=== PATIENT | female | born 1945 | race African-American/Black ===

== ENCOUNTER 2018-07-20 06:13 | Day surgery (SDC) | payer OTHER ==
[2018-07-15 12:17] LABS: Absolute Lymphocytes (CBC) 1.4 K/uL (0.7-4.9); Absolute Monocytes 0.5 K/uL (0.1-1.3); Absolute Neutrophil 2.8 K/uL (1.8-8.0); Basophils % 0.9 % (0-1.3); Eosinophils % 4.8 % (0-4.4); Hematocrit 38.5 % (36.0-45.0); Lymphocytes % 28.6 % (15.3-44.8); MCH 27.2 pg (27.0-35.0); MCV 82.1 fL (80-100); MPV 8.3 fL (7.6-11.3); Monocytes % 9.7 % (3.3-12.3); RBC Red Blood Cell Count 4.69 M/uL (3.86-4.86)
[2018-07-15 12:26] LABS: Protime INR 1.03
[2018-07-15 12:32] LABS: Potassium 3.7 mmol/L (3.5-5.1)
--- NOTE | 2018-07-15 12:33 | RAD REPORT ---
EXAM DESCRIPTION: Sebastian Urban And Lat (2 Views)07/15/2018 12:26 pm CLINICAL HISTORY: Preop for heart catheterization. Hypertension COMPARISON: July 02, 2018 FINDINGS: Marked scoliosis involves the thoracolumbar spine. The lungs appear clear of acute infiltrate. The heart is normal size IMPRESSION: No acute abnormalities displayed
[2018-07-20] MEDS ORDERED: LIDOCAINE 1% MPF 30 ML VIAL ONE (06:58)
[2018-07-20] MEDS ORDERED: NA CHLORIDE 0.9% 0 ML ONE (06:58)
[2018-07-20] MEDS ORDERED: ATROPINE SULF 1 MG/10 ML SYR IV ONE (06:58)
[2018-07-20] MEDS ORDERED: HEPA 1000U/500MLS 1,000 UNIT/500 ML BAG IV ONE (06:58)
[2018-07-20] MEDS ORDERED: NA CHLORIDE 0.9% 500 ML ONE (07:02)
[2018-07-20] MEDS ORDERED: FENTANYL CITR 100 MCG/2 ML ONE (07:21)
[2018-07-20] MEDS ORDERED: MIDAZOLAM HCL 2 MG/2 ML INJ ONE ×2 (07:21→07:35)
[2018-07-20] MEDS ORDERED: METHYLPREDNISOLONE 125 MG INJ ONE (07:27)
--- NOTE | 2018-07-20 11:23 | OP ---
Surgeon: Gurjit Thomas MD Mail Courier: Minerva Verdin. Ms. Arce was admitted to the label machine operator as an outpatient on 07/20/2018. Procedure: Left heart catheterization, selective coronary arteriogram. A 6-Persian sheath introduced in the right common femoral artery. The patient was prepped and draped in the routine sterile fashi on, given 100 mg of Solu-Medrol for iodine allergy. She has received 60 mg of prednisone p.o. x2. S he was prepped and draped in the routine sterile fashion. 6-Persian catheters were used to do the gian gnostic catheterization. She was found to have about 20-30 percent mid LAD lesion. Otherwise, she h ad a normal circumflex, normal RCA. She was right dominant. She tolerated the procedure well. Ther e were no complications. Blood Loss: 5 cc. Postoperative Diagnosis: Mild coronary artery disease. Plan: Medical therapy. Total Conscious Sedation: 30 minutes. JACQUES/DELROY Voice ID: [id number] Report ID: [id number]
== END 2018-07-20 10:07 | disposition home or self-care (01) ==
LOC: CCL 06:13
DX: I25.10 Atherosclerotic heart disease of native coronary artery without angina pectoris (principal); I10 Essential (primary) hypertension; Z88.2 Allergy status to sulfonamides; Z91.041 Radiographic dye allergy status; Z82.49 Family history of ischemic heart disease and other diseases of the circulatory system
CPT/HCPCS: 36415; 71046; 80048; 85025; 85610; 85730; 93454; C1760; C1893; J2250; J2930; J3010; J0583

== ENCOUNTER 2018-10-19 16:45 | Observation (INO) | payer OTHER ==
--- OUTSIDE RECORDS SUMMARY | 2018-10-19 16:47 | XMS REPORT ---
:1945 [facility] [address] [place] [address] Dr. Chapman. [address] [place] [id number] Care Team Providers Name Role Phone Unavailable Unavailable Unavailable Problems This patient has no known problems. Allergies, Adverse Reactions, Alerts This patient has no known allergies or adverse reactions. Medications This patient has no known medications.
--- NOTE | 2018-10-19 20:03 | RAD REPORT ---
EXAM DESCRIPTION: RAD - Chest Single View - 10/19/2018 7:39 pm CLINICAL HISTORY: Chest pain COMPARISON: July 2018 TECHNIQUE: AP portable chest image was obtained 1936 hours . FINDINGS: No acute lung parenchymal process seen. Interstitial markings are stable from comparison. Heart and vasculature are normal. No measurable pleural effusion and no pneumothorax. No acute bone f inding. Patient has a very pronounced right convex thoracic scoliotic curvature. No acute aortic find ings suspected. IMPRESSION: No acute cardiopulmonary process. No significant interval change.
[2018-10-19 20:16] LABS: Absolute Monocytes 0.6 K/uL (0.1-1.3); Absolute Neutrophil 4.2 K/uL (1.8-8.0); Basophils % 0.9 % (0-1.3); Eosinophils % 2.2 % (0-4.4); Hematocrit 41.6 % (36.0-45.0); Lymphocytes % 28.9 % (15.3-44.8); MPV 8.7 fL (7.6-11.3); Monocytes % 8.2 % (3.3-12.3); RBC Red Blood Cell Count 5.07 M/uL (3.86-4.86)
[2018-10-19 20:38] LABS: ALT/SGPT 13 U/L (12-78); AST/SGOT 18 U/L (15-37); Albumin 4.2 g/dL (3.4-5.0); Alkaline Phosphatase 111 U/L (45-117); BUN Blood Urea Nitrogen 10 mg/dL (7-18); Bicarbonate 26 mmol/L (21-32); Bilirubin Direct < 0.1 mg/dL (0-0.2); Bilirubin Total 0.2 mg/dL (0.2-1.0); Glucose Level 110 mg/dL (74-106); Magnesium 2.6 mg/dL (1.8-2.4); NT PRO-BNP 52 pg/mL (<450); Potassium 4.2 mmol/L (3.5-5.1); Protein, Total 8.9 g/dL (6.4-8.2); Sodium Level 138 mmol/L (136-145); Troponin (Emerg Dept Use Only) < 0.02 ng/mL (0.0-0.045)
[2018-10-19] MEDS ORDERED: NA CHLORIDE 0.9% 1,000 ML ONE (20:48)
[2018-10-19 21:21] LABS: Urine Blood TRACE (NEG); Urine Glucose NEGATIVE (NEG); Urine Protein NEGATIVE (NEG); Urine Specific Gravity 1.015 (1.005-1.030); Urine pH 6.5 (5.0-7.0)
--- NOTE | 2018-10-19 21:43 | EKG ---
Test Date: 2018-10-19 Test Time: 17:03:11 Operations Processor: ALYCIA MEASUREMENT RESULTS: Intervals: Rate: 75 [place]: 222 QRSD: 82 QT: 374 QTc: 417 [place]: P: 70 [place]: 222 QRS: 71 T: 10 INTERPRETIVE STATEMENTS: Sinus rhythm with 1st degree AV block Biatrial enlargement Abnormal ECG Compared to ECG 07/02/2018 10:13:25 No significant changes Electronically Signed On 10-19-18 21:43:33 MANAGER ACQUISITION by Haile Soriano
--- NOTE | 2018-10-19 23:43 | ER ---
Nurse's Notes [facility] Name: Grace Arce Age: 73 yrs Sex: Female : 1945 Arrival Date: 10/19/2018 Time: 16:48 Bed 24 Private MD: Kumar Louie R Diagnosis: Other chest pain;Abdominal tenderness;Urinary tract infection, site not specified;Essential (primary) hypertension Presentation: 10/19 16:56 Presenting complaint: Patient states: Upper abdominal fullness and upper chest hb tightness x 3 days. Transition of care: patient was not received from another setting of care. Onset of symptoms was October 17, 2018. Risk Assessment: Do you want to hurt yourself or someone else? Patient reports no desire to harm self or others. Care prior to arrival: None. 16:56 Method Of Arrival: Ambulatory hb 16:56 Acuity: WALE 3 hb 22:18 Initial Sepsis Screen: Does the patient meet any 2 criteria? No. Patient's initial mg2 sepsis screen is negative. Does the patient have a suspected source of infection? No. Patient's initial sepsis screen is negative. Historical: - Allergies: 17:00 Iodinated Contrast- Oral and IV Dye; hb 17:00 Sulfa (Sulfonamide Antibiotics); hb - Home Meds: 17:01 Norvasc Oral [Active]; Atenolol Oral [Active]; hb - PMHx: 17:01 Hypertension; hb - Immunization history:: Adult Immunizations up to date. - Social history:: Smoking status: Patient/guardian denies using tobacco. - Ebola Screening: : No symptoms or risks identified at this time. - Family history:: not pertinent. Screenin:47 Abuse screen: Denies threats or abuse. Denies injuries from another. Nutritional mg2 screening: No deficits noted. Tuberculosis screening: No symptoms or risk factors identified. Fall Risk IV access (20 points). Assessment: 19:45 General: Appears in no apparent distress. comfortable, Behavior is calm, cooperative. mg2 Pain: Complains of pain in chest Pain does not radiate. Pain currently is 2 out of 10 on a pain scale. Quality of pain is described as tightness Pain began gradually, 2-3 days ago. Is intermittent. Neuro: Level of Consciousness is awake, alert, obeys commands, Oriented to person, place, time, situation. Cardiovascular: Capillary refill < 3 seconds Patient's skin is warm and dry. Respiratory: Airway is patent Respiratory effort is even, unlabored, Respiratory pattern is regular, symmetrical. GI: Bowel sounds present X 4 quads. Abd is soft and non tender X 4 quads. Reports constipation. : No signs and/or symptoms were reported regarding the genitourinary system. EENT: No signs and/or symptoms were reported regarding the EENT system. Derm: Skin is intact, is healthy with good turgor, Skin is pink, warm \T\ dry. normal. Musculoskeletal: Circulation, motion, and sensation intact. Capillary refill < 3 seconds. 23:59 Reassessment: patient informed about the need for admission. patient agreed. mg2 Vital Signs: 16:59 BP 147 / 100; Pulse 79; Resp 16; Temp 98.1; Pulse Ox 100% on R/A; Pain 8/10; hb 19:48 BP 139 / 96; Pulse 77; Resp 18; Pulse Ox 99% on R/A; Pain 2/10; mg2 22:55 BP 124 / 84; Pulse 80; Resp 18; Pulse Ox 100% on R/A; Pain 0/10; mg2 23:41 Weight 68.49 kg; ms 23:59 BP 140 / 102; Pulse 80; Resp 18; Pulse Ox 100% on R/A; Pain 0/10; mg2 ED Course: 16:48 Patient arrived in ED. sb2 16:49 Kumar Louie MD is Private Physician. sb2 16:59 Triage completed. hb 17:01 Arm band placed on. hb 17:02 EKG completed in triage. Results shown to MD. hb 19:16 Bruce Rudolph, ANGELES is Primary Nurse. mg2 19:27 Edmond Olivas MD is Attending Physician. kermit 19:39 XRAY Chest (1 view) In Process Unspecified. EDMS 19:47 No provider procedures requiring assistance completed. Inserted saline lock: 20 gauge mg2 in right antecubital area, using aseptic technique. Blood collected. 22:19 Patient has correct armband on for positive identification. mg2 22:45 CT Chest Abdomen Pelvis W/O Contrast: oral only In Process Unspecified. EDMS 23:40 Kumar Louie MD is Hospitalizing Provider. kermit 10/20 01:18 Patient admitted, IV remains in place. mg2 Administered Medications: 10/19 20:58 Drug: NS 0.9% 500 ml Route: IV; Rate: bolus; Site: right antecubital; mg2 10/20 01:22 Follow up: Response: No adverse reaction; IV Status: Completed infusion mg2 10/19 21:24 Drug: NS 0.9% 1000 ml Route: IV; Rate: 125 ml/hr; Site: right antecubital; mg2 10/20 01:22 Follow up: Response: No adverse reaction; IV Status: Completed infusion mg2 10/19 23:58 Drug: Aspirin Chewable Tablet 162 mg Route: PO; mg2 10/20 01:22 Follow up: Response: No adverse reaction mg2 10/19 23:58 Drug: Pepcid 20 mg Route: IVP; Site: right antecubital; mg2 10/20 01:19 Follow up: Response: No adverse reaction; Marked relief of symptoms mg2 10/19 23:58 Drug: Lopressor 25 mg Route: PO; mg2 10/20 01:19 Follow up: Response: No adverse reaction [facility] 10/19 23:58 Drug: Lovenox 1 mg/kg Route: Sub-Q; Site: right lower abdomen; mg2 10/20 01:19 Follow up: Response: No adverse reaction; Marked relief of symptoms mg2 10/19 23:58 Drug: Rocephin - (cefTRIAXone) 1 grams Route: IVPB; Infused Over: 30 mins; Site: right mg2 antecubital; 10/20 01:19 Follow up: Response: No adverse reaction; IV Status: Completed infusion mg2 Outcome: 10/19 23:42 Decision to Hospitalize by Provider. [facility] 10/20 01:18 Admitted to Tele accompanied by tech, via wheelchair, room 403, with chart, Report mg2 called to ANGELES Gutierrez Condition: stable Instructed on the need for admit, Demonstrated understanding of instructions. 02:03 Patient left the ED. mg2 Signatures: Dispatcher [employer] EDEdmond Rosenthal MD MD cha Solis, Maria ms Baxter, Heather, ANGELES RN Sharon Del Castillo Michele, RN RN mg2 Corrections: (The following items were deleted from the chart) 10/19 17:02 17:01 EKG completed in triage. Results shown to . deb boyd
--- NOTE | 2018-10-19 23:44 | EDPHYS ---
Physician Documentation [facility] Name: Grace Arce Age: 73 yrs Sex: Female : 1945 Arrival Date: 10/19/2018 Time: 16:48 Bed 24 Private MD: Kumar Louie R ED Physician Edmond Olivas HPI: 10/19 20:34 This 73 yrs old Black Female presents to ER via Ambulatory with complaints of Abdominal kermit Pain, Chest Pain > 30 y/o. 20:34 The patient or guardian reports chest pain that is located primarily in the substernal kermit area. Onset: 7 day(s) ago. The pain does not radiate. Associated signs and symptoms: The patient has no apparent associated signs or symptoms. The chest pain is described as dull, a pressure. Modifying factors: The symptoms are alleviated by nothing. the symptoms are aggravated by nothing. Severity of pain: At its worst the pain was mild in the emergency department the pain is unchanged. The patient has not experienced similar symptoms in the past. Historical: - Allergies: 17:00 Iodinated Contrast- Oral and IV Dye; hb 17:00 Sulfa (Sulfonamide Antibiotics); hb - Home Meds: 17:01 Norvasc Oral [Active]; Atenolol Oral [Active]; hb - PMHx: 17:01 Hypertension; hb - Immunization history:: Adult Immunizations up to date. - Social history:: Smoking status: Patient/guardian denies using tobacco. - Ebola Screening: : No symptoms or risks identified at this time. - Family history:: not pertinent. ROS: 20:34 Constitutional: Negative for fever, chills, and weight loss, Eyes: Negative for injury, kermit pain, redness, and discharge, ENT: Negative for injury, pain, and discharge, Neck: Negative for injury, pain, and swelling, Respiratory: Negative for shortness of breath, cough, wheezing, and pleuritic chest pain, Abdomen/GI: Negative for abdominal pain, nausea, vomiting, diarrhea, and constipation, Back: Negative for injury and pain, : Negative for injury, bleeding, discharge, and swelling, MS/Extremity: Negative for injury and deformity, Skin: Negative for injury, rash, and discoloration, Neuro: Negative for headache, weakness, numbness, tingling, and seizure, Psych: Negative for depression, anxiety, suicide ideation, homicidal ideation, and hallucinations, Allergy/Immunology: Negative for hives, rash, and allergies, Endocrine: Negative for neck swelling, polydipsia, polyuria, polyphagia, and marked weight changes, Hematologic/Lymphatic: Negative for swollen nodes, abnormal bleeding, and unusual bruising. 20:34 Cardiovascular: Positive for chest pain, of the chest. 20:34 Abdomen/GI: Positive for abdominal pain, of the right upper quadrant, left upper quadrant, right lower quadrant and left lower quadrant. Exam: 20:34 Constitutional: This is a well developed, well nourished patient who is awake, alert, kermit and in no acute distress. Head/Face: Normocephalic, atraumatic. Eyes: Pupils equal round and reactive to light, extra-ocular motions intact. Lids and lashes normal. Conjunctiva and sclera are non-icteric and not injected. Cornea within normal limits. Periorbital areas with no swelling, redness, or edema. ENT: Nares patent. No nasal discharge, no septal abnormalities noted. Tympanic membranes are normal and external auditory canals are clear. Oropharynx with no redness, swelling, or masses, exudates, or evidence of obstruction, uvula midline. Mucous membranes moist. Neck: Trachea midline, no thyromegaly or masses palpated, and no cervical lymphadenopathy. Supple, full range of motion without nuchal rigidity, or vertebral point tenderness. No Meningismus. Chest/axilla: Normal chest wall appearance and motion. Nontender with no deformity. No lesions are appreciated. Cardiovascular: Regular rate and rhythm with a normal S1 and S2. No gallops, murmurs, or rubs. Normal PMI, no JVD. No pulse deficits. Respiratory: Lungs have equal breath sounds bilaterally, clear to auscultation and percussion. No rales, rhonchi or wheezes noted. No increased work of breathing, no retractions or nasal flaring. Abdomen/GI: Soft, non-tender, with normal bowel sounds. No distension or tympany. No guarding or rebound. No evidence of tenderness throughout. Back: No spinal tenderness. No costovertebral tenderness. Full range of motion. Female : Normal external genitalia. Skin: Warm, dry with normal turgor. Normal color with no rashes, no lesions, and no evidence of cellulitis. MS/ Extremity: Pulses equal, no cyanosis. Neurovascular intact. Full, normal range of motion. Neuro: Awake and alert, GCS 15, oriented to person, place, time, and situation. Cranial nerves II-XII grossly intact. Motor strength 5/5 in all extremities. Sensory grossly intact. Cerebellar exam normal. Normal gait. Psych: Awake, alert, with orientation to person, place and time. Behavior, mood, and affect are within normal limits. Vital Signs: 16:59 BP 147 / 100; Pulse 79; Resp 16; Temp 98.1; Pulse Ox 100% on R/A; Pain 8/10; hb 19:48 BP 139 / 96; Pulse 77; Resp 18; Pulse Ox 99% on R/A; Pain 2/10; mg2 22:55 BP 124 / 84; Pulse 80; Resp 18; Pulse Ox 100% on R/A; Pain 0/10; mg2 23:41 Weight 68.49 kg; ms 23:59 BP 140 / 102; Pulse 80; Resp 18; Pulse Ox 100% on R/A; Pain 0/10; mg2 MDM: 19:27 Patient medically screened. [facility] 20:39 Data reviewed: vital signs, nurses notes, lab test result(s), EKG, radiologic studies, [facility] CT scan, plain films. 10/19 19:17 Order name: Basic Metabolic Panel; Complete Time: 23:29 [facility] 10/19 19:17 Order name: CBC with Diff; Complete Time: 20:32 [facility] 10/19 19:17 Order name: LFT's; Complete Time: 23:29 [facility] 10/19 19:17 Order name: Magnesium; Complete Time: 23:29 [facility] [place] [place] 10/19 19:17 Order name: NT PRO-BNP; Complete Time: 23:29 [facility] [place] 10/19 19:17 Order name: PT-INR; Complete Time: 23:29 [facility] 10/19 19:17 Order name: Troponin (emerg Dept Use Only); Complete Time: 23:29 [facility] [place] 10/19 19:17 Order name: XRAY Chest (1 view); Complete Time: 20:32 mg2 10/19 20:32 Order name: Lipase; Complete Time: 23:29 [facility] 10/19 20:32 Order name: Urine Culture [facility] 10/19 20:34 Order name: CT Chest Abdomen Pelvis W/O Contrast: oral only [facility] 10/19 20:34 Order name: Lactate; Complete Time: 23:29 kermit 10/19 21:16 Order name: Urine Dipstick--Ancillary (enter results); Complete Time: 23:29 ms 10/19 18:22 Order name: EKG Electrocardiogram [facility] 10/19 19:17 Order name: EKG; Complete Time: 19:19 mg2 10/19 19:17 Order name: Cardiac monitoring; Complete Time: 19:45 mg2 10/19 19:17 Order name: EKG - Nurse/Tech; Complete Time: 19:45 [facility] 10/19 19:17 Order name: IV Saline Lock; Complete Time: 19:45 mg2 10/19 19:17 Order name: Labs collected and sent; Complete Time: 19:45 [facility] 10/19 19:17 Order name: O2 Per Protocol; Complete Time: 19:45 [facility] 10/19 19:17 Order name: O2 Sat Monitoring; Complete Time: 19:45 mg2 10/19 20:32 Order name: Urine Dipstick-Ancillary (obtain specimen); Complete Time: 20:48 [facility] 10/19 23:46 Order name: CONS Physician Consult [facility] Administered Medications: 20:58 Drug: NS 0.9% 500 ml Route: IV; Rate: bolus; Site: right antecubital; mg2 10/20 01:22 Follow up: Response: No adverse reaction; IV Status: Completed infusion mg2 10/19 21:24 Drug: NS 0.9% 1000 ml Route: IV; Rate: 125 ml/hr; Site: right antecubital; mg2 10/20 01:22 Follow up: Response: No adverse reaction; IV Status: Completed infusion mg2 10/19 23:58 Drug: Aspirin Chewable Tablet 162 mg Route: PO; mg2 10/20 01:22 Follow up: Response: No adverse reaction mg2 10/19 23:58 Drug: Pepcid 20 mg Route: IVP; Site: right antecubital; mg2 10/20 01:19 Follow up: Response: No adverse reaction; Marked relief of symptoms mg2 10/19 23:58 Drug: Lopressor 25 mg Route: PO; mg2 10/20 01:19 Follow up: Response: No adverse reaction mg2 10/19 23:58 Drug: Lovenox 1 mg/kg Route: Sub-Q; Site: right lower abdomen; mg2 10/20 01:19 Follow up: Response: No adverse reaction; Marked relief of symptoms mg2 10/19 23:58 Drug: Rocephin - (cefTRIAXone) 1 grams Route: IVPB; Infused Over: 30 mins; Site: right mg2 antecubital; 10/20 01:19 Follow up: Response: No adverse reaction; IV Status: Completed infusion mg2 Disposition: 10/19/18 23:42 Hospitalization ordered by Kumar Louie for Observation. Preliminary diagnosis are Other chest pain, Abdominal tenderness, Urinary tract infection, site not specified, Essential (primary) hypertension. - Bed requested for Telemetry/MedSurg (observation). - Status is Observation. mg2 - Condition is Stable. - Problem is new. - Symptoms have improved. UTI on Admission? Yes Signatures: Dispatcher [employer] EDMS Edmond Olivas MD MD cha Chretien, Felicia, RN RN Roxanne Zurita RN RN Bruce Rudolph RN RN mg2 Corrections: (The following items were deleted from the chart) 00:48 10/19 23:42 Hospitalization Ordered by Kumar Louie MD for Observation. Preliminary fc diagnosis is Other chest pain; Abdominal tenderness; Urinary tract infection, site not specified; Essential (primary) hypertension. Bed requested for Telemetry/MedSurg (observation). Status is Observation. Condition is Stable. Problem is new. Symptoms have improved. UTI on Admission? Yes. [facility] 10/20 02:03 00:48 10/19/2018 23:42 Hospitalization Ordered by Kumar Louie MD for Observation. mg2 Preliminary diagnosis is Other chest pain; Abdominal tenderness; Urinary tract infection, site not specified; Essential (primary) hypertension. Bed requested for Telemetry/MedSurg (observation). Status is Observation. Condition is Stable. Problem is new. Symptoms have improved. UTI on Admission? Yes. fc
[2018-10-20] MEDS ORDERED: METOPROLOL TAR 25 MG TAB ONE
[2018-10-20] MEDS ORDERED: ENOXAPARIN 80 MG/0.8 ML SQ ONE
[2018-10-20] MEDS ORDERED: FAMOTIDINE 20 MG/2 ML VIAL IV ONE
[2018-10-20] MEDS ORDERED: ASPIRIN 81 MG CHEWABLE TABLET ONE
[2018-10-20] MEDS ORDERED: CEFTRIAXONE/SWI 1gm 1 GM/10 ML SYR ONE
[2018-10-20 02:16] VITALS: BMI 23.8
[2018-10-20] MEDS ORDERED: MORPHINE 4 MG/ML SYR IV PRN (02:16)
[2018-10-20] MEDS ORDERED: ACETAMINOPHEN 500 MG TAB PO PRN (02:16)
[2018-10-20] MEDS ORDERED: ONDANSETRON 4 MG/2 ML VIAL IV PRN (02:16)
[2018-10-20 03:43] LABS: Absolute Lymphocytes (CBC) 1.9 K/uL (0.7-4.9); Absolute Monocytes 0.6 K/uL (0.1-1.3); Absolute Neutrophil 3.5 K/uL (1.8-8.0); Basophils % 0.5 % (0-1.3); Eosinophils % 2.8 % (0-4.4); Hematocrit 38.6 % (36.0-45.0); Lymphocytes % 30.9 % (15.3-44.8); MPV 8.4 fL (7.6-11.3); Monocytes % 9.9 % (3.3-12.3); RBC Red Blood Cell Count 4.76 M/uL (3.86-4.86)
[2018-10-20 03:51] LABS: Potassium 4.1 mmol/L (3.5-5.1)
[2018-10-20] MEDS: METOPROLOL TAR 25 MG TAB PO SCH ×2 (05:21→18:39)
[2018-10-20] MEDS: INFLUENZA VACCINE (for 3y+) 0.5 ML DOSE IMVAC ONE ×2 (09:00→18:54)
[2018-10-20] MEDS ORDERED: AMLODIPINE 5 MG TAB PO SCH (09:00)
[2018-10-20] MEDS ORDERED: AMLODIPINE 5 MG TAB PO ONE (09:00)
[2018-10-20] MEDS ORDERED: FAMOTIDINE 20 MG/2 ML VIAL IV SCH (09:00)
[2018-10-20] MEDS ORDERED: DOCUSATE NA 100 MG CAP PO SCH (09:00)
[2018-10-20] MEDS ORDERED: DOCOSAHEXANOIC AC/EPA 1000 MG PO SCH (09:00)
[2018-10-20] MEDS ORDERED: ASPIRIN EC 81 MG TAB PO SCH (09:00)
[2018-10-20] MEDS ORDERED: ENOXAPARIN 80 MG/0.8 ML SQ SCH (09:00)
[2018-10-20 11:00] VITALS: O2SAT 98
--- NOTE | 2018-10-20 11:16 | RAD REPORT ---
EXAM DESCRIPTION: CT - Chest Abd Pelvis Wo Con - 10/20/2018 5:19 am CLINICAL HISTORY: Chest pain, Abdominal distention. COMPARISON: None. TECHNIQUE: CT scan of the chest, abdomen, and pelvis without IV contrast. Oral contrast was administ ered. This exam was performed according to our departmental dose-optimization program, which includes automated exposure control, adjustment of the mA and/or kV according to patient size and/or less of iterative reconstruction technique. FINDINGS: The thyroid gland is unremarkable. No mediastinal or axillary adenopathy. No mediastinal o r axillary adenopathy. Limited evaluation for hilar adenopathy without IV contrast. The heart size is normal without pericardial effusion. No consolidation, pleural effusion, or pneumothorax. Multiple cysts are present scattered throughout the liver. The gallbladder, spleen, pancreas, adrenal glans and kidneys are unremarkable. Multiple calcified fibroids ar present. There is no hiatal herni a. No small bowel obstruction. The appendix is normal. No evidence of acute diverticulitis. No intrap eritoneal free fluid or free air is identified. The aorta contains atherosclerotic calcifications. No body wall hernia is seen. IMPRESSION: No acute findings in the chest, abdominal, or pelvis. Electronically signed by Rashaun Price MD 10/19/2018 11:06 PM BRIDGE PAINTER Due to temporary technical issues with the PACS/Fluency reporting system, reports are being signed by the in house radiologist as a courtesy to ensure prompt reporting. The interpreting radiologist is f ully responsible for the content of the report.
--- NOTE | 2018-10-20 11:49 | CON ---
History Of Present Illness: Ms. Arce is 73. She came to the hospital with chest pain. She has bee n admitted to the hospital, not always this hospital, but hospitals in general, [address] pain. One of those, a cardiac cath was normal. There was a 20% plaque in the LAD. Just last wee k she was at the emergency room in [place], [place], where they did EKGs and enzymes and told her, the heart looked fine. She was released. She comes back here with pain. She says the pain is worse af ter meals, sometimes worse with exertion. It is abdominal pain and pain in the chest and shoulders a nd even back and shoulder blades sometime. Since she has been in the hospital, her blood pressure corrales s been within normal range. She has had normal cardiac enzymes and an EKG that does not show any sig ns of infarction, injury, or ischemia. Physical Examination: General: She appears to be her stated age. She is 5 feet 6 inches tall, 148 pounds. HEENT: Normal. Lungs: Clear. Heart: Within normal limits. Abdomen: Soft. Extremities: Normal. No cyanosis, clubbing, or edema. Distal pulses are normal. Imaging: EKG reveals fine atrial abnormality. Home Medications: Docusate, fish oil, atenolol, aspirin, and amlodipine. Allergies: SHE IS ALLERGIC TO X-RAY CONTRAST MATERIAL AND SULFA ANTIBIOTICS. Impression: The patient does not need another cardiac workup at this point, a cardiac cath was 3 mon ths ago. No sign that her 20% lad stenosis has progressed. I think what she needs is an ultrasound of her abdomen to see if she has gallstones and a GI workup in general if that is normal. Thank you very much for your kind referral of Ms. Arce. I will follow her with you. MILADY Voice ID: [id number] Report ID: [id number]
--- NOTE | 2018-10-20 12:22 | EKG ---
Test Date: 2018-10-20 Test Time: 09:45:48 Dial Lathe Operator: DANETTE MEASUREMENT RESULTS: Intervals: Rate: 67 SD: 234 QRSD: 78 QT: 386 QTc: 407 [place]: P: 58 SD: 234 QRS: 22 T: 24 INTERPRETIVE STATEMENTS: Sinus rhythm with 1st degree AV block Possible Left atrial enlargement Borderline ECG Compared to ECG 10/19/2018 17:03:11 No significant changes Electronically Signed On 10-20-18 12:21:59 SEXER by Haile Soriano
[2018-10-20] MEDS: PNEUMOCOCCAL VACCINE 0.5 ML IMVAC ONE ×2 (15:00→18:56)
[2018-10-20 16:19] VITALS: BP 125/82; TEMP 98
--- NOTE | 2018-10-20 18:54 | RAD REPORT ---
EXAM DESCRIPTION: US - Abdomen Exam Complete - 10/20/2018 6:23 pm CLINICAL HISTORY: Abdominal pain. rule out gallstones COMPARISON: No comparisons FINDINGS: The liver is normal in size, shape and echotexture. Multiple varying size liver cysts. No intrahepatic biliary dilatation. The gallbladder demonstrates no gallstones, pericholecystic fluid or gallbladder wall thickening. Co mmon bile duct is normal in caliber measuring 5 millimeters. Both kidneys demonstrate mild increased echogenicity. No hydronephrosis, focal lesion of concern or p erinephric fluid. The spleen is normal in size measuring 8 centimeters. The pancreas and aorta are obscured by bowel gas. The visualized aspects of the IVC are grossly normal. IMPRESSION: Negative gallbladder/biliary tree findings. Increased echogenicity of both kidneys suggests underlying medical renal disease. Multiple benign-appearing liver cysts.
--- NOTE | 2018-10-21 06:28 | HP ---
Date of Admission: 10/19/2018 Chief Complaint: Epigastric pain. History Of Present Illness: A 73-year-old female who recently had coronary angiogram which was negat kristy was brought to the emergency room because of pain located in substernal area. The patient had CA T scan of the chest, abdomen, and various workup which was negative. The patient is admitted by BARBARA garcia. Past Medical History: Positive for hypertension. Allergies: IODINE, SULFA. Family History: Noncontributory. Personal History: Nonsmoker. Home Medications: Please refer to the chart. Review of Systems: No fever, chills, or rigors. Physical Examination: General: Revealed a 73-year-old female, fully alert for her age. HEENT: Negative. Neck: Supple. JVD negative. Chest: Clear. Heart: Regular. Abdomen: Soft. Extremities: No edema. Neurological: Negative. Laboratory Data: Troponin negative. Assessment: 1.Epigastric pain. 2.Recent normal coronary angiography. 3.Hypertension. Plan: Cardiology Service already saw the patient and recommended no further workup. The patient niraj l be discharged. She will undergo a GI workup for her symptoms. YOVANY/DELROY Voice ID: [id number]
[2018-10-21] MEDS ORDERED: AMLODIPINE 10 MG TAB PO SCH (09:00)
== END 2018-10-20 19:02 | disposition home or self-care (01) ==
LOC: ER 16:45 → ERHOLD 23:57 → 4TH 10-20 01:20
PROVIDERS: ADMIT Internal Medicine; ATTEND Internal Medicine
DX: R10.13 Epigastric pain (principal); I10 Essential (primary) hypertension; Z88.2 Allergy status to sulfonamides; Z91.041 Radiographic dye allergy status; Z23 Encounter for immunization
CPT/HCPCS: 36415; 71045; 71250; 74176; 76700; 80048 ×2; 80076; 81003; 83605; 83690; 83735; 83880; 84484 ×3; 85025 ×2; 85610; 87086; 87088; 90670; 93005 ×2; 96361; 96365; 96372; 96375; 99285; G0008; G0009; G0378 ×2; J0696; J1650 ×2; J7030; Q2035

== ENCOUNTER 2022-01-12 12:30 | Emergency (ER) | payer OTHER ==
--- OUTSIDE RECORDS SUMMARY | 2022-01-12 12:32 | XMS REPORT | Continuity of Care Document ---
:1945 Author Organization [facility] t Address [address] [place] [address] Dr. Damon [address] [place] [id number] Care Team Providers Name Role Phone Unavailable Unavailable Unavailable Problems This patient has no known problems. Allergies, Adverse Reactions, Alerts This patient has no known allergies or adverse reactions. Medications This patient has no known medications. Procedures This patient has no known procedures. Results This patient has no known results.
--- NOTE | 2022-01-12 15:20 | RAD REPORT ---
EXAM DESCRIPTION: CT - Head C Spine Mpr Wo Con - 01/12/2022 2:55 pm CLINICAL HISTORY: Head and neck injury status post fall. Head and neck pain COMPARISON: None. TECHNIQUE: Computed axial tomography of the head and cervical spine was obtained. Sagittal and coronal reconstruction was performed. All CT scans are performed using dose optimization technique as appropriate and may include automated exposure control or mA/KV adjustment according to patient size. FINDINGS: An intracranial bleed is not seen. The ventricles are normal in caliber. An extra-axial fl uid collection is not noted.Fluid within the visualized sinuses and mastoids is not seen A cervical fracture is not visualized. No dislocation is noted. Moderate spondylosis involves the cervical spine IMPRESSION: No acute intracranial abnormality is seen. A cervical fracture is not visualized. If the patient continues to have symptoms to suggest intracra nial /spinal cord pathology then MRI would be recommended
--- NOTE | 2022-01-12 15:43 | EDPHYS ---
Physician Documentation [facility] Name: Grace Arce Age: 76 yrs Sex: Female : 1945 Arrival Date: 01/12/2022 Time: 12:31 Bed 12 Private MD: ED Physician Edmond Olivas HPI: 01/12 13:48 This 76 yrs old Black Female presents to ER via Ambulatory with complaints of High pm1 Blood Pressure and Headache. 13:48 The patient has elevated blood pressure and discovered this at home, with a home pm1 device. Onset: The symptoms/episode began/occurred 3 week(s) ago. Modifying factors: The symptoms are aggravated by Nothing, The symptoms are alleviated by Nothing. Associated signs and symptoms: Pertinent negatives: chest pain, nausea, vomiting, weakness, shortness of breath. Severity of symptoms: in the emergency department the blood pressure is unchanged. The patient has not recently seen a physician, the patient's primary care provider is Dr. Louie, has an appointment scheduled, in 3 day(s). Patient reports elevated blood pressure since fall injury 3 weeks ago. Patient was standing on a 2 step ladder and she fell on her face. Patient reports headache and neck pain and noticed that her blood pressure has been elevated since then. Historical: - Allergies: 13:07 Sulfa (Sulfonamide Antibiotics); ph - PMHx: 13:07 Hypertension; ph - Immunization history:: Client reports having NOT received the Covid vaccine. - Social history:: Smoking status: Patient denies any tobacco usage or history of. ROS: 13:48 Constitutional: Negative for fever, chills, and weight loss, Cardiovascular: Negative pm1 for chest pain, palpitations, and edema, Respiratory: Negative for shortness of breath, cough, wheezing, and pleuritic chest pain. 13:48 MS/Extremity: Negative for injury and deformity, Skin: Negative for injury, rash, and discoloration. 13:48 Neck: Positive for neck pain, Negative for 13:48 Neuro: Positive for headache, Negative for dizziness, numbness, tingling, weakness. 13:48 All other systems are negative. Exam: 13:48 Constitutional: This is a well developed, well nourished patient who is awake, alert, pm1 and in no acute distress. Head/Face: Normocephalic, atraumatic. 13:48 Back: No spinal tenderness. No costovertebral tenderness. Full range of motion. Skin: Warm, dry with normal turgor. Normal color with no rashes, no lesions, and no evidence of cellulitis. MS/ Extremity: Pulses equal, no cyanosis. Neurovascular intact. Full, normal range of motion. 13:48 Eyes: Exam is negative for acute changes, Periorbital structures: appear normal, Extraocular movements: no acute changes, Conjunctiva: no acute changes, no injection. 13:48 ENT: Exam is negative for acute changes, Mouth: Lips: normal, moist, Oral mucosa: normal, pink and intact, moist. 13:48 Neck: External neck: tenderness, that is mild, of the left trapezius and right trapezius, C-spine: vertebral tenderness, is not appreciated. 13:48 Cardiovascular: Exam negative for acute changes, Rate: normal, Rhythm: regular, Pulses: no pulse deficits are appreciated. 13:48 Respiratory: Exam negative for acute changes, respiratory distress, shortness of breath, Breath sounds: are clear throughout. 13:48 Abdomen/GI: Exam negative for acute changes, Inspection: abdomen appears normal, Palpation: abdomen is soft and non-tender, in all quadrants. 13:48 Neuro: Exam negative for acute changes, Orientation: is normal, Mentation: is normal, Motor: is normal, moves all fours. Vital Signs: 13:07 BP 152 / 87; Pulse 71; Resp 15; Temp 97.0(TE); Pulse Ox 98% on R/A; ph MDM: 13:40 Patient medically screened. pm1 14:36 Special discussion: I have referred the patient to see his PCP for further evaluation pm1 of high blood pressure. recommended that patient create a log of her blood pressure to take to her PCP for further management. 15:01 Data reviewed: vital signs. Data interpreted: Pulse oximetry: on room air is 98 %. pm1 Interpretation: normal. 15:41 Counseling: I had a detailed discussion with the patient and/or guardian regarding: the pm1 historical points, exam findings, and any diagnostic results supporting the discharge/admit diagnosis, radiology results, the need for outpatient follow up, to return to the emergency department if symptoms worsen or persist or if there are any questions or concerns that arise at home. 01/12 13:45 Order name: CT Head C Spine; Complete Time: 15:25 pm1 Administered Medications: 15:59 Drug: Benadryl (diphenhydrAMINE) 25 mg Route: PO; 16:08 Follow up: Response: Medication administered at discharge. 15:59 Drug: Ketorolac 30 mg Route: IM; Site: right gluteus; ss 16:25 Follow up: Response: No adverse reaction ss 16:09 Drug: Reglan (metoCLOPramide) 10 mg Route: PO; ss 16:25 Follow up: Response: No adverse reaction ss Disposition Summary: 01/12/22 15:42 Discharge Ordered Location: Home pm1 Problem: new pm1 Symptoms: have improved pm1 Condition: Stable pm1 Diagnosis - Headache pm1 - Fall (on) (from) other stairs and steps pm1 - Essential (primary) hypertension pm1 - Strain of muscle, fascia and tendon at neck level pm1 Followup: pm1 - With: Emergency Department - When: As needed - Reason: Worsening of condition Followup: pm1 - With: Private Physician - When: 2 - 3 days - Reason: Recheck today's complaints, Continuance of care, Re-evaluation by your physician Discharge Instructions: - Discharge Summary Sheet pm1 - General Headache Without Cause pm1 - Fall Prevention in the Home, Adult pm1 - Hypertension, Adult pm1 - Muscle Strain pm1 - How to Take Your Blood Pressure, [id number] pm1 - DASH Eating Plan pm1 - Managing Your Hypertension pm1 Forms: - Medication Reconciliation Form pm1 - Thank You Letter pm1 - Antibiotic Education pm1 - Prescription Opioid Use pm1 Signatures: Dispatcher [employer] Breanne Ledesma RN RN ss Berenice Maria RN RN ph Durga Sampson, ANITA LAST REPAIRER pm1 Corrections: (The following items were deleted from the chart) 13:10 13:07 Allergies: Iodinated Contrast- Oral and IV Dye; ph ph
--- NOTE | 2022-01-12 15:43 | ER ---
Nurse's Notes [facility] Name: Grace Arce Age: 76 yrs Sex: Female : 1945 Arrival Date: 01/12/2022 Time: 12:31 Bed 12 Private MD: Diagnosis: Headache;Fall (on) (from) other stairs and steps;Essential (primary) hypertension;Strain of muscle, fascia and tendon at neck level Presentation: 01/12 13:07 Chief complaint: Patient states: "I had a fall three weeks ago and hit my head. In the morning when I get up my blood pressure is high like 150/100 before I take my medicine. When I lay down at night, it's low like 99/51. Ever since I fell my blood pressure is just acting up.". Coronavirus screen: Client denies travel out of the [place] in the last 14 days. Ebola Screen: Patient denies exposure to infectious person. Patient denies travel to an Ebola-affected area in the 21 days before illness onset. Initial Sepsis Screen: Does the patient meet any 2 criteria? No. Patient's initial sepsis screen is negative. Does the patient have a suspected source of infection? No. Patient's initial sepsis screen is negative. Risk Assessment: Do you want to hurt yourself or someone else? Patient reports no desire to harm self or others. Onset of symptoms was December 22, 2021. 13:07 Method Of Arrival: Ambulatory ph 13:07 Acuity: WALE 3 ph Historical: - Allergies: 13:07 Sulfa (Sulfonamide Antibiotics); ph - PMHx: 13:07 Hypertension; ph - Immunization history:: Client reports having NOT received the Covid vaccine. - Social history:: Smoking status: Patient denies any tobacco usage or history of. Screenin:07 Abuse screen: Denies threats or abuse. Denies injuries from another. Nutritional ss screening: No deficits noted. Tuberculosis screening: Never had TB. Fall Risk None identified. Assessment: 14:07 General: Appears in no apparent distress. comfortable, Behavior is calm, cooperative. ss Pain: Denies pain. Neuro: Booth Agitation-Sedation Scale (RASS): 0 - Alert and Calm Level of Consciousness is awake, alert, obeys commands, Oriented to person, place, time, situation, Branch Lending Manager are equal bilaterally Moves all extremities. Full function Gait is steady, Speech is normal, Facial symmetry appears normal, Pupils are PERRLA. Cardiovascular: Capillary refill < 3 seconds is brisk in bilateral fingers. Respiratory: Respiratory effort is even, unlabored. GI: Patient currently denies diarrhea, nausea, vomiting. : No signs and/or symptoms were reported regarding the genitourinary system. EENT: Nares are clear. Derm: Skin is intact, is healthy with good turgor, Skin is dry, Skin is pink, warm \\T\\ dry. normal. Vital Signs: 13:07 BP 152 / 87; Pulse 71; Resp 15; Temp 97.0(TE); Pulse Ox 98% on R/A; ph ED Course: 12:31 Patient arrived in ED. ds1 13:07 Arm band placed on right wrist. ph 13:09 Triage completed. ph 13:11 Durga Sampson NP is PHCP. pm1 13:11 Edmond Olivas MD is Attending Physician. pm1 14:07 Breanne aMrinelli, ANGELES is Primary Nurse. ss 14:07 Patient has correct armband on for positive identification. Bed in low position. Call ss light in reach. 14:57 CT Head C Spine In Process Unspecified. EDMS 16:01 No provider procedures requiring assistance completed. Patient did not have IV access ss during this emergency room visit. Administered Medications: 15:59 Drug: Benadryl (diphenhydrAMINE) 25 mg Route: PO; ss 16:08 Follow up: Response: Medication administered at discharge. ss 15:59 Drug: Ketorolac 30 mg Route: IM; Site: right gluteus; ss 16:25 Follow up: Response: No adverse reaction ss 16:09 Drug: Reglan (metoCLOPramide) 10 mg Route: PO; ss 16:25 Follow up: Response: No adverse reaction ss Outcome: 15:42 Discharge ordered by MD. pm1 16:01 Condition: good ss 16:01 Discharge instructions given to patient, family, Instructed on discharge instructions, follow up and referral plans. Demonstrated understanding of instructions, follow-up care. 16:25 Discharged to home ambulatory, with family. ss 16:26 Patient left the ED. ss Signatures: Dispatcher [employer] EDDE FoxAllyssa key ds1 Breanne Marinelli, RN RN Berenice Cox, RN RN ph Durga Sampson, TEXTILE CUTTING MACHINE OPERATOR TEXTILE CUTTING MACHINE OPERATOR pm1 Corrections: (The following items were deleted from the chart) 13:10 13:07 Allergies: Iodinated Contrast- Oral and IV Dye; ph ph 16:26 16:25 Discharged to home ambulatory, with significant other, akira champion
[2022-01-12] MEDS ORDERED: DIPHENHYDRAMINE 25 MG TAB/CAP ONE (15:56)
[2022-01-12] MEDS ORDERED: KETOROLAC 30 MG/ML INJ ONE (15:57)
[2022-01-12] MEDS ORDERED: METOCLOPRAMIDE 5 MG TAB PO SCH (16:00)
[2022-01-12 16:35] VITALS: BP 152/87; TEMP 97; O2SAT 98
== END 2022-01-12 16:26 | disposition home or self-care (01) ==
LOC: ER 12:30
DX: R51.9 Headache, unspecified (principal); S16.1XXA Strain of muscle, fascia and tendon at neck level, initial encounter; W10.9XXA Fall (on) (from) unspecified stairs and steps, initial encounter; I10 Essential (primary) hypertension; Z88.2 Allergy status to sulfonamides
CPT/HCPCS: 70450; 72125; 96372; 99283

== ENCOUNTER 2023-04-22 08:11 | Day surgery (SDC) | payer OTHER ==
[2023-04-20 15:08] LABS: Absolute Lymphocytes (CBC) 1.1 K/uL (0.7-4.9); Hematocrit 34.1 % (36.0-45.0); Lymphocytes % 20.6 % (15.3-44.8); MCV 78.8 fL (80-100); Platelets 315 thou/uL (152-406); RBC Red Blood Cell Count 4.32 M/uL (3.86-4.86)
[2023-04-20 15:23] LABS: Potassium 3.5 mEq/L (3.5-5.1)
--- NOTE | 2023-04-20 15:36 | RAD REPORT ---
EXAM DESCRIPTION: RAD - Chest Pa And Lat (2 Views) - 04/20/2023 3:06 pm CLINICAL HISTORY: Pre op pending mass removal right leg Chest pain. COMPARISON: Chest Pa And Lat (2 Views) dated 02/13/2021; Chest Pa And Lat (2 Views) dated 11/17/2019; C hest Single View dated 10/19/2018; Chest Pa And Lat (2 Views) dated 07/15/2018 TECHNIQUE: PA and lateral views of the chest were obtained. FINDINGS: The lungs are hyperexpanded compatible with COPD. The heart is upper limit of normal in si ze. Advanced dextroscoliosis of the thoracic spine. IMPRESSION: COPD without acute process identified. The USPSTF recommends annual screening for lung cancer with low-dose CT (LDCT) in adults aged 50 to 8 0 years who have a 20 pack-year smoking history and currently smoke or have quit within the past 15 y ears.
--- NOTE | 2023-04-21 17:03 | EKG ---
Test Date: 2023-04-20 Test Time: 14:46:28 [employer] Makeup Artist: JAVAN MEASUREMENT RESULTS: Intervals: Rate: 70 NM: 220 QRSD: 84 QT: 370 QTc: 399 [place]: P: 69 NM: 220 QRS: 20 T: 37 INTERPRETIVE STATEMENTS: Sinus rhythm with 1st degree AV block Possible Left atrial enlargement Borderline ECG Compared to ECG 10/20/2018 09:45:48 No significant changes Electronically Signed On 04-21-23 17:02:45 CDT by Harris Loyola
[2023-04-22] MEDS ORDERED: NA CHLORIDE 0.9% 1,000 ML ONE (08:45)
[2023-04-22 09:39] VITALS: O2SAT 100
[2023-04-22] MEDS: CEFAZOLIN SODIUM 1 GM/VIAL ONE ×2 (09:52→10:30)
[2023-04-22] MEDS ORDERED: propofoL 200 MG/20 ML VIAL IV ONE (10:06)
[2023-04-22] MEDS ORDERED: FENTANYL CITR 100 MCG/2 ML ONE (10:06)
[2023-04-22] MEDS ORDERED: LIDOCAINE 2% MPF 5 ML VIAL ONE (10:06)
[2023-04-22] MEDS ORDERED: MIDAZOLAM HCL 2 MG/2 ML INJ ONE (10:06)
--- NOTE | 2023-04-22 11:06 | P.BOP ---
Preoperative diagnosis: right lower medial leg tender subQ mass Postoperative diagnosis: same Primary procedure: Excisional biopsy right lower medial leg tender subQ mass 5x3.5 cm Estimated blood loss: <10cc Specimen: mass Findings: mass Anesthesia: MAC Complications: None Transferred to: Recovery Room Condition: Good
[2023-04-22 13:51] VITALS: BP 108/77; TEMP 97.9
--- NOTE | 2023-04-22 16:23 | DS ---
Date of Discharge: 04/22/2023 Diagnosis: Right lower medial leg tender subcutaneous mass. Procedure: Excisional biopsy of right lower medial leg tender subcutaneous mass. Activity: As tolerated. No heavy lifting. Plan: Keep dressings intact. Follow up in my office in 1 week. Medications: Will be called through her pharmacy. BURT/DELROY Voice ID: [id number] Report ID: [id number]
--- NOTE | 2023-04-22 16:30 | OP ---
Date of Procedure: 04/22/2023 Surgeon: Eris Tabares MD Preoperative Diagnosis: Right lower medial leg tender subcutaneous mass. Postoperative Diagnosis: Right lower medial leg tender subcutaneous mass. Procedure: Excisional biopsy of right lower medial leg tender subcutaneous mass, 5 x 3.5 cm. Estimated Blood Loss: Less than 10 mL. Specimen: Mass. Findings: Subcutaneous mass. Complications: None. Anesthesia: MAC plus local. Indication: This is the case of a 77-year-old patient, who comes to us with an asymmetrical mass goi ng into the right lower leg. No etiology for it that she can remember. No trauma. It is becoming b igger and tender and she wants that excised. The benefits, alternatives, and risks of excision fully explained, which include, but not limited to infection, bleeding, damage to adjacent structures, ane sthesia complication, chronic ulcer, chronic wound, AR, and even . She also understands this ma y not relieve any symptoms. She might need more than one surgical intervention. She understood, sig arleen a consent. The area of concern was marked by me and the patient in the holding room. Procedure In Detail: The patient was brought to the operating room, placed in supine position. Anes thesia was done without complication. Right leg was prepped and draped in the usual sterile fashion. Local anesthesia was applied followed by sharp incision in the right lower leg. Incision was babak ed down until we find the subcutaneous mass present. With the help of blunt dissection, we were able to dissect, not just the mass asymmetrical edges to it until we have 1 and removed. Fasc ia seems to be touched by this, but the muscle seems not to be involved. The mass was completely exc ised. The area was irrigated. Hemostasis was obtained and then we proceeded to close this with a co mbination of 3-0 chromic and 4-0 PDS with Steri-Strip and sterile dressings on it. Sponge count, ins trument counts correct. The patient tolerated the procedure well. The patient was sent to recovery in stable condition. BURT/DELROY Voice ID: [id number] Report ID: [id number]
== END 2023-04-22 12:41 | disposition home or self-care (01) ==
LOC: OR 08:11
PROVIDERS: ATTEND Surgery
PROC: 0JBN0ZZ Excision of Right Lower Leg Subcutaneous Tissue and Fascia, Open Approach (ICD-10-PCS; principal; 2023-04-22 10:00)
DX: D17.23 Benign lipomatous neoplasm of skin and subcutaneous tissue of right leg (principal)
CPT/HCPCS: 11406; 93005; 85025; 80048; 36415; 88304; 71046; J2704; J2001; J2250; J7030; J0690; J3010